=== PATIENT | female | born 1975 | race Caucasian/White ===

== ENCOUNTER 2021-12-15 10:54 | Day surgery (SDC) | payer BC ==
[2021-12-14 11:25] LABS: BASOPHILS % (AUTO) 0.4 % (0.0-2.0); EOSINOPHILS # (AUTO) 0.1 K/uL (0-0.4); EOSINOPHILS % (AUTO) 0.8 % (0.0-4.0); HEMATOCRIT 36.9 % (36-48); HEMOGLOBIN 12.1 g/dL (12.0-16.0); LYMPHOCYTES # (AUTO) 2.5 K/uL (2.5-16.5); LYMPHOCYTES % (AUTO) 24.8 % (20.5-51.1); MEAN CORPUSCULAR HEMOGLOBIN 25 pg (27-31); MEAN CORPUSCULAR HGB CONC 33 g/dL (33-37); MEAN CORPUSCULAR VOLUME 75.5 fL (80-94); MONOCYTES % (AUTO) 10.4 % (1.7-9.3); NEUTROPHILS # (AUTO) 6.3 K/uL (1.8-7.7); NEUTROPHILS % (AUTO) 63.6 % (42.2-75.2); PLATELET COUNT (AUTO) 241 K/uL (140-450); RED BLOOD CELL COUNT(AUTO) 4.88 MIL/uL (4.20-5.40); RED CELL DISTRIBUTION WIDTH 14.1 % (11.6-13.7); WHITE BLOOD COUNT (AUTO) 9.9 K/uL (4.8-10.8)
[2021-12-14 11:59] LABS: ALBUMIN 3.5 g/dL (3.4-5.0); ANION GAP 8.8 (8-16); CARBON DIOXIDE 30.1 mmol/L (21-32); CREATININE 0.7 mg/dL (0.6-1.3); POTASSIUM 4.9 mmol/L (3.5-5.1); TOTAL BILIRUBIN 0.2 mg/dL (0.0-1.0)
[~2021-12-15] VITALS: Ht 154.9 cm; Wt 68.5 kg
[2021-12-15] MEDS ORDERED: CLINDAMYCIN 600 MG in DEXTROSE 5% 50 ML IV SCH (11:05)
[2021-12-15] MEDS ORDERED: BUPIVACAINE-MPF 0.25% 30 ML VIAL INJ ONE (14:03)
[2021-12-15] MEDS ORDERED: PROPOFOL 200 MG/20 ML VIAL IV ONE (14:23)
[2021-12-15] MEDS ORDERED: fentaNYL citrate 0.05 MG/ML VIAL ONE (14:24)
[2021-12-15] MEDS ORDERED: SEVOFLURANE 250 ML BTL INH ONE (14:25)
[2021-12-15] MEDS ORDERED: MEPERIDINE 25 MG/ML SYR ONE (14:52)
[2021-12-15] MEDS ORDERED: ONDANSETRON 4 MG/2 ML VIAL ONE (14:52)
[2021-12-15] MEDS ORDERED: DEXAMETHASONE 4 MG/ML VIAL ONE (14:52)
[2021-12-15] MEDS ORDERED: ONDANSETRON 4 MG/2 ML VIAL IVP PRN (15:15)
[2021-12-15] MEDS ORDERED: LACTATED RINGERS 1,000 ML IV SCH (15:15)
[2021-12-15] MEDS ORDERED: diphenhydrAMINE 50 MG/ML VIAL IVP PRN (15:15)
[2021-12-15] MEDS ORDERED: HYDROmorphone 1 MG/ML AMP IVP PRN ×2 (15:15→15:25)
[2021-12-15] MEDS ORDERED: MEPERIDINE 25 MG/ML SYR IVP PRN (15:15)
[2021-12-15] MEDS ORDERED: ONDANSETRON 4 MG/2 ML VIAL IV PRN (15:25)
[2021-12-15] MEDS ORDERED: MORPHINE SULFATE 4 MG/ML SYR IV PRN (15:25)
[2021-12-15] MEDS ORDERED: MORPHINE SULFATE 2 MG/ML SYR IVP PRN (15:25)
== END 2021-12-15 17:08 | disposition home or self-care (01) ==
LOC: MDS 10:54 → MMU 10:54 → MDS 17:08
PROVIDERS: ATTEND Surgery
DX: D24.1 Benign neoplasm of right breast (principal); J45.909 Unspecified asthma, uncomplicated; D24.2 Benign neoplasm of left breast; N60.31 Fibrosclerosis of right breast; N60.32 Fibrosclerosis of left breast; Z88.0 Allergy status to penicillin; Z88.5 Allergy status to narcotic agent; Z79.899 Other long term (current) drug therapy; Z20.822 Contact with and (suspected) exposure to COVID-19
CPT/HCPCS: 19120; 36415; 71045; 80053; 81025; 85025; 87426; 88307; J1100; J2175; J2405; J2704; J3010; J3490; J7060